=== PATIENT | female | born 1990 | race Caucasian/White ===

== ENCOUNTER 2017-04-25 20:42 | Emergency (ER) | payer MEDICAID ==
[~2017-04-25] VITALS: Ht 154.9 cm; Wt 59.0 kg
--- NOTE | 2017-04-25 21:58 | NUR ---
TO BED 8 A 26 YO FEMALE BIBSELF W C/O "LOWER ABD PAIN X1 HOUR." PATIENT DENIES N/V/DIARRHEA/FEVER. PATIENT IS AAOX4, AMBULATORY, NAD NOTED. VSS. NONDIAPHORETIC. GOWNED. COMFORT MEASURES RENDERED. AWAITING FOR ER MD SMITH.
--- NOTE | 2017-04-25 22:24 | NUR ---
started a saline lock on the racg 18, blood drawn and sent to lab.
[2017-04-25 22:29] LABS: APPEARANCE,URINE SL CLOUDY (CLEAR); BILIRUBIN,URINE NEGATIVE (NEGATIVE); BLOOD, URINE NEGATIVE Ery/uL (NEGATIVE); COLOR,URINE YELLOW (YELLOW); KETONES,URINE NEGATIVE (NEGATIVE); LEUKOCYTE ESTERASE ,URINE NEGATIVE (NEGATIVE); NITRITE, URINE POSITIVE (NEGATIVE); PH,URINE 6.5 (5.0-8.0); PROTEIN,URINE NEGATIVE (NEGATIVE); UGLUCOSE NEGATIVE (NEGATIVE); UROBILINOGEN,URINE 0.2 EU/dL (0.2)
[2017-04-25 22:35] LABS: PREGNANCY TEST URINE QUAL NEGATIVE (NEGATIVE); RBC,URINE NONE SEEN /HPF (0-2); SQUAMOUS EPITHELIAL CELL,UR Moderate /HPF (None Seen)
--- NOTE | 2017-04-25 22:35 | NUR ---
medicated patient as ordered by Dr Kay.
[2017-04-25 22:36] LABS: BACTERIA,URINE Moderate /HPF (None Seen)
[2017-04-25 22:37] LABS: BASOPHILS % (AUTO) 0.4 % (0.0-2.0); EOSINOPHILS # (AUTO) 0.1 /CMM (0.0-0.7); EOSINOPHILS % (AUTO) 1.2 % (0.0-6.0); HEMATOCRIT 39 % (33-45); HEMOGLOBIN 12.3 g/dL (11.5-14.8); LYMPHOCYTES # (AUTO) 2.2 /CMM (0.8-4.8); MEAN CORPUSCULAR HEMOGLOBIN 26 PG (26.0-33.0); MEAN CORPUSCULAR HGB CONC 32 g/dl (31.0-36.0); MEAN CORPUSCULAR VOLUME 80 fL (82-100); MONOCYTES # (AUTO) 0.5 /CMM (0.1-1.30); MONOCYTES % (AUTO) 5.4 % (2.0-12.0); NEUTROPHILS # (AUTO) 6.2 /CMM (1.8-8.9); PLATELET COUNT (AUTO) 222 /CMM (150-450); RED BLOOD CELL COUNT(AUTO) 4.82 MIL/uL (4.0-5.2)
--- NOTE | 2017-04-25 22:44 | NUR ---
ongoing alejandro at bedside.
[2017-04-25 22:48] LABS: CALCIUM, SERUM 8.7 mg/dL (8.5-10.1); CREATININE 0.8 mg/dL (0.6-1.3); POTASSIUM 3.6 mmol/L (3.5-5.1)
[2017-04-25 22:52] LABS: INR 1.03 (0.87-1.13)
[2017-04-25 22:54] LABS: BILIRUBIN,DIRECT 0.1 mg/dL (0.0-0.2); BILIRUBIN,TOTAL 0.3 mg/dL (0.2-1.0); TOTAL PROTEIN, SERUM 7.5 g/dL (6.4-8.2)
--- NOTE | 2017-04-26 00:03 | NUR ---
IV removed. Catheter intact and site benign. Pressure and 4x4 applied to site. No bleeding noted. Patient discharged to home in stable condition. Written and verbal after care instructions given. Patient verbalizes understanding of instruction. Patient is ambulatory with steady gait, Instructed not to drive. Accompanied by family. No further complaints.
[2017-04-26 00:04] VITALS: BP 134/82
== END 2017-04-26 00:04 | disposition home or self-care (01) ==
LOC: ER 20:46
DX: N83.8 Other noninflammatory disorders of ovary, fallopian tube and broad ligament (principal); N39.0 Urinary tract infection, site not specified
CPT/HCPCS: 36415; 76856-TC; 80048-TC; 80076-TC; 81000-TC; 84703-TC; 85025-TC; 85730-TC; 87086-TC; 87186-TC; A4606; J2270; J2405; Z7610